=== PATIENT | female | born 1955 | race Caucasian/White ===

== ENCOUNTER 2017-02-22 14:54 | Emergency (ER) | payer SELFPAY ==
[~2017-02-22] VITALS: Ht 152.4 cm; Wt 75.5 kg
[2017-02-22 15:05] VITALS: Ht 152.4 cm; Wt 75.5 kg
[2017-02-22 21:55] LABS: URINE BLOOD (Dip) POC Trace-lysed (NEGATIVE)
[2017-02-22 22:05] VITALS: BP 167/102; PULSE 97; RESP 15; TEMP 98.7
--- NOTE | 2017-02-22 22:13 | ERA ---
ER Documentation Chief Complaint Date/Time DATE: 02/22/17 TIME: 22:12 Chief Complaint ABDOMINAL PAIN HPI The patient is a 62-year-old female, presenting with abdominal pain that began about 6 AM today, vomiting 3 times mostly mucus. She denies fever, chills, neck pain, chest pain, dyspnea, dysuria, diarrhea. She does not smoke nor drink Past medical history: Hypertension Past surgical history: Hysterectomy and tonsillectomy ROS All systems reviewed and are negative except as per history of present illness. Medications Home Meds Active Scripts Ondansetron (Ondansetron Odt) 4 Mg Tab.rapdis, 4 MG PO Q6H Y for NAUSEA AND/OR VOMITING, #10 TAB Prov:BRIDGER URBINA MD 02/22/17 Ibuprofen* (Motrin*) 600 Mg Tab, 600 MG PO Q6H Y for PAIN AND OR ELEVATED TEMP, #20 TAB Prov:BRIDGER URBINA MD 02/22/17 Ciprofloxacin Hcl* (Ciprofloxacin Hcl*) 500 Mg Tablet, 500 MG PO BID for 7 Days , TAB Prov:BRIDGER URBINA MD 02/22/17 Allergies Allergies: Coded Allergies: No Known Allergy (Unverified , 02/22/17) Physical Exam Vitals Vital Signs Date Time Temp Pulse Resp B/P Pulse Ox O2 Delivery O2 Flow Rate FiO2 02/22/17 22:05 98.7 97 15 167/102 99 Room Air 02/22/17 15:05 77 19 186/110 97 Physical Exam Const: No acute distress. Head: Atraumatic. Eyes: Normal Conjunctiva. ENT: Normal External Ears, Nose and Mouth. Neck: Full range of motion. No meningismus. Resp: Clear to auscultation bilaterally. Cardio: Regular rate and rhythm. Abd: Soft, non distended, normal bowel sounds, non tender. Skin: No petechiae or rashes. Back: No midline or flank tenderness. Ext: No cyanosis, or edema. Neur: Awake and alert. No focal deficit Psych: Normal Mood and Affect. Results 24 hrs Laboratory Tests Test 02/22/17 22:01 Bedside Urine pH (LAB) 7.0 Bedside Urine Protein (LAB) Trace Bedside Urine Glucose (UA) Negative Bedside Urine Ketones (LAB) 1+ Bedside Urine Blood Trace-lysed Bedside Urine Nitrite (LAB) Negative Bedside Urine Leukocyte Esterase (L 3+ Current Medications Medications (Trade) Dose Ordered Sig/Corin Route PRN Reason Start Time Stop Time Status Last Admin Dose Admin Ciprofloxacin (Cipro) 500 mg ONCE ONCE PO 02/22/17 23:00 02/22/17 23:00 DC 02/22/17 22:38 Ondansetron HCl (Zofran Odt) 4 mg ONCE STAT ODT 02/22/17 22:32 02/22/17 22:34 DC 02/22/17 22:38 Procedures/MDM MEDICAL MAKING DECISION: The patient is a 72-year-old female, presenting with acute cystitis. She is stable for outpatient follow-up The differential diagnoses considered include but are not limited to cholelithiasis, cholecystitis, cystitis, pancreatitis, hepatitis, gastritis, peptic ulcer disease, gastric ulcer, appendicitis, diverticulitis, cholangitis, choledocholithiasis, partial small bowel obstruction. Departure Diagnosis: Primary Impression: UTI (urinary tract infection) Condition: Good Additional Instructions: She was treated with Cipro and Zofran in the ER and given a prescription for Cipro and Zofran I discussed the findings with the patient. I advised the patient to follow-up with the primary physician in about 1-2 days, sooner if needed and return if any concern. She was advised to cemented ultrasound the gallbladder to rule out cholelithiasis BRIDGER URBINA MD Feb 22, 2017 22:13
[2017-02-22] MEDS ORDERED: ONDANSETRON (ODT) 4 MG TAB ODT STA (22:32)
[2017-02-22] MEDS ORDERED: CIPR500T4 PO (22:35)
[2017-02-22] MEDS ORDERED: ONDA4TAB14 PO (22:36)
[2017-02-22] MEDS ORDERED: IBUP-1542 PO (22:36)
[2017-02-22] MEDS ORDERED: CIPROFLOXACIN 500 MG TAB PO ONE (23:00)
== END 2017-02-22 22:46 | disposition home or self-care (01) ==
LOC: E/R 14:54
DX: N39.0 Urinary tract infection, site not specified (principal); I10 Essential (primary) hypertension; R11.10 Vomiting, unspecified
CPT/HCPCS: 81003; 99284